=== PATIENT | male | born 2005 | race Caucasian/White ===

== ENCOUNTER 2023-06-24 14:25 | Emergency (ER) | payer OTHER ==
[~2023-06-24] VITALS: Ht 190.5 cm; Wt 145.1 kg
[2023-06-24] MEDS ORDERED: NS IV 1000 ML 1,000 ML IV STA ×2 (14:48→15:28)
--- NOTE | 2023-06-24 14:54 | ED Abdominal Pain ---
General Chief Complaint: Abdominal/GI Problems Stated Complaint: ABD PAIN | DIARRHEA Source of Information: Patient Exam Limitations: No Limitations (ROME KELSEY) History of Present Illness Date Seen by Provider: Jun 24, 2023 Time Seen by Provider: 14:51 Initial Comments Patient is a 18-year-old male who presents ED from [facility] for evaluation for abdominal pain and bloody stools. Patient states he started developing diarrhea yesterday. Several bowel movements that was watery. Patient started having bright red blood in his stool today with an episode of dark stool just right before arrival. Generalized abdominal cramping right before the diarrhea. Reports 2 episodes of vomiting. Was seen at the clinic today receive Zofran and was recommended come the ED secondary to bloody stool and tachycardia. No history of previous abdominal surgery. Denies any recent travels or antibiotic use. Denies eating anything differently. Patient states he has been urinating. Denies cough, sore throat, chest pain, ear pain. Does report a headache. Patient reports subjective fever. (ROME KELSEY) Allergies and Home Medications Allergies Coded Allergies: No Known Drug Allergies (Unverified , 06/24/23) Patient Home Medication List Home Medication List Reviewed: Yes (ROME KELSEY) Ciprofloxacin HCl (Cipro) 500 Mg Tablet, 500 MG PO BID Prescribed by: SUSANA FLORES on 06/24/231802 Metronidazole (Metronidazole) 500 Mg Tablet, 500 MG PO TID Prescribed by: SUSANA FLORES on 06/24/231802 Ondansetron (Ondansetron Odt) 4 Mg Tab.rapdis, 4 MG SL Q4H PRN for NAUSEA/VOMITING Prescribed by: SUSANA FLORES on 06/24/231802 Review of Systems Review of Systems Constitutional: chills; No diaphoresis; fever, malaise, weakness EENTM: No Double Vision, No Eye Pain Respiratory: Denies Cough, Denies SOA at Rest Cardiovascular: Denies Chest Pain Gastrointestinal: Abdominal Pain, Blood Streaked Stools, Diarrhea, Nausea, Vomiting Genitourinary: Denies Burning, Denies Discharge Musculoskeletal: No back pain, No joint pain Skin: No change in color, No change in hair/nails (ROME KELSEY) All Other Systems Reviewed Negative Unless Noted: Yes (ROME KELSEY) Physical Exam Vital Signs Vital Signs - First Documented 06/24/23 14:37 Temp 39.1 Pulse 117 Resp 15 B/P (MAP) 167/98 (121) Pulse Ox 97 O2 Delivery Room Air (COLIN ELDRIDGE MD) Vital Signs Capillary Refill : (ROME KELSEY) Height/Weight/BMI Height: '" Weight: lbs. oz. 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5 5-9 Urine Specific [place] >=1.030 1.016-1.022 Urine Protein 3+ H NEGATIVE Urine Glucose (UA) NEGATIVE NEGATIVE Urine Ketones NEGATIVE NEGATIVE Urine Nitrite NEGATIVE NEGATIVE Urine Bilirubin 1+ H NEGATIVE Urine Urobilinogen 0.2 < = 1.0 MG/DL Urine Leukocyte Esterase NEGATIVE NEGATIVE Urine RBC (Auto) TRACE H NEGATIVE Urine RBC 0-2 /HPF Urine WBC 0-2 /HPF Urine Squamous Epithelial Cells 0-2 /HPF Urine Crystals PRESENT H /LPF Urine Amorphous Sediment FEW BRAD URATES H /LPF Urine Bacteria FEW H /HPF Urine Casts NONE /LPF Urine Mucus MODERATE H /LPF Urine Culture Indicated NO White Blood Count 14.9 H 4.3-11.0 10^3/uL Red Blood Count 5.49 4.30-5.52 10^6/uL Hemoglobin 15.8 13.3-17.7 g/dL Hematocrit 47 40-54 % Mean Corpuscular Volume 86 80-99 fL Mean Corpuscular Hemoglobin 29 25-34 pg Mean Corpuscular Hemoglobin Concent 33 32-36 g/dL Red Cell Distribution Width 12.9 10.0-14.5 % Platelet Count 172 130-400 10^3/uL Mean Platelet Volume 10.8 9.0-12.2 fL Immature Granulocyte % (Auto) 0 % Neutrophils (%) (Auto) 85 H 42-75 % Lymphocytes (%) (Auto) 4 L 12-44 % Monocytes (%) (Auto) 9 0-12 % Eosinophils (%) (Auto) 1 0-10 % Basophils (%) (Auto) 0 0-10 % Neutrophils # (Auto) 12.7 H 1.8-7.8 10^3/uL Lymphocytes # (Auto) 0.6 L 1.0-4.0 10^3/uL Monocytes # (Auto) 1.4 H 0.0-1.0 10^3/uL Eosinophils # (Auto) 0.1 0.0-0.3 10^3/uL Basophils # (Auto) 0.1 0.0-0.1 10^3/uL Immature Granulocyte # (Auto) 0.1 0.0-0.1 10^3/uL Neutrophils % (Manual) 54 % Lymphocytes % (Manual) 5 % Monocytes % (Manual) 12 % Basophils % (Manual) 1 % Metamyelocytes % 1 % Band Neutrophils 27 % Platelet Estimate ADEQUATE Blood Morphology Comment NORMAL Prothrombin Time 14.2 12.2-14.7 SEC INR Comment 1.1 0.8-1.4 Activated Partial Thromboplast Time 33 24-35 SEC Sodium Level 134 L 135-145 MMOL/L Potassium Level 3.7 3.6-5.0 MMOL/L Chloride Level 100 98-107 MMOL/L Carbon Dioxide Level 21 21-32 MMOL/L Anion Gap 13 5-14 MMOL/L Blood Urea Nitrogen 15 7-18 MG/DL Creatinine 1.22 0.60-1.30 MG/DL Estimat Glomerular Filtration Rate 87 BUN/Creatinine Ratio 12 Glucose Level 124 H 70-105 MG/DL Calcium Level 9.6 8.5-10.1 MG/DL Corrected Calcium 9.2 8.5-10.1 MG/DL Total Bilirubin 0.8 0.1-1.0 MG/DL Aspartate Amino Transf (AST/SGOT) 35 H 5-34 U/L Alanine Aminotransferase (ALT/SGPT) 52 0-55 U/L Alkaline Phosphatase 82 40-136 U/L Total Protein 8.0 6.4-8.2 GM/DL Albumin 4.5 3.2-4.5 GM/DL Lipase 21 8-78 U/L Lactic Acid Level 2.13 *H 0.50-2.00 MMOL/L Influenza Type A (RT-PCR) Not Detected Not Detecte Influenza Type B (RT-PCR) Not Detected Not Detecte SARS-CoV-2 RNA (RT-PCR) Not Detected Not Detecte Test 06/24/23 17:27 Range/Units Lactic Acid Level 1.36 0.50-2.00 MMOL/L (COLIN ELDRIDGE MD) Vital Signs/I&O 06/24/23 06/24/23 14:37 17:40 Temp 39.1 38.1 Pulse 117 107 Resp 15 12 B/P (MAP) 167/98 (121) 145/66 Pulse Ox 97 97 O2 Delivery Room Air Room Air (COLIN ELDRIDGE MD) Fecal Occult: Positive (ROME KELSEY) Departure Communication (PCP) On arrival febrile tachycardic. Septic work-up was initiated. Patient has had generalized abdominal pain few episodes of vomiting and diarrhea since yesterday with bloody mucousy stools today. No family history of known inflammatory bowel disease. History of tricuspid regurgitation. Patient was tachycardic. Patient received a dose of Toradol. Started on liter of fluid. Patient did not have any specific abdominal tenderness on arrival. CBC showed an elevated white blood count of 14. Normal hemoglobin. Chemistry was grossly unremarkable. COVID influenza negative lactic acid 2.13. Improvement to 1.36 after second liter of fluid. Heart rate remained just above 110-120. Patient states he does normally have a higher heart rate. Not able to compare. Patient is a student at [employer]. CT abdomen and pelvis shows right hemicolon inflammation suggesting colitis which may be infectious versus inflammatory. No evidence of obstruction or abscess. he has had no recent travels or antibiotic use that would increase the chance for infectious etilogy. He did initially receive a dose of Rocephin broad-spectrum antibiotic. consulted with Dr. Dunn. Discussed admission for observation IV fluids and IV antibiotics. He agreed and recommended clear liquids, pain medication, nausea medication and Cipro and Flagyl. Did consult with Dr. Coyne who agreed to accept patient. Family came down from [place]. Discussed results with family. Family talked to patient and at this time they are wanting to go home with oral antibiotics and they will follow-up outpatient with general surgery. He states he is feeling much better at this time. Will discharge with Cipro and Flagyl. Zofran for nausea. Clear liquids for the next 2 or 3 days. Need to follow-up with general surgery for reevaluation. If symptoms continue to worsen he needs return back to ED and they agreed. May require a outpatient colonoscopy for further evaluation. (ROME KELSEY) Impression Primary Impression: Colitis Disposition: 01 HOME, SELF-CARE Condition: Stable Departure-Patient Inst. Decision time for Depature: 17:30 (ROME KELSEY) Referrals: [facility] MD NO,LOCAL PHYSICIAN (PCP) Primary Care Physician Patient Instructions: Colitis (DC) Add. Discharge Instructions: Take Cipro and Flagyl as prescribed. Clear liquid diet for the next 2 or 3 days. Zofran for nausea. If any worsening symptoms return back to ED. Follow- up with general surgery within the next 1 to 2 weeks for reevaluation All discharge instructions reviewed with patient and/or family. Voiced understanding. Scripts Ondansetron (Ondansetron Odt) 4 Mg Tab.rapdis 4 MG SL Q4H PRN for NAUSEA/VOMITING, #8 TAB Prov: ROME KELSEY 06/24/23 Metronidazole (Metronidazole) 500 Mg Tablet 500 MG PO TID for 7 Days, #21 TAB Prov: ROME KELSEY 06/24/23 Ciprofloxacin HCl (Cipro) 500 Mg Tablet 500 MG PO BID for 7 Days, #14 TAB Prov: ROME KELSEY 06/24/23 ATTENDING PHYSICIAN NOTE: I was physically present as attending physician in the emergency department during the care of this patient, but I was not directly involved in the decision making or delivery of care for this patient. (COLIN ELDRIDGE MD) ROME KELSEY Jun 24, 2023 14:54 COLIN ELDRIDGE MD Jun 25, 2023 13:04
[2023-06-24 14:55] LABS: BASOPHILS # (AUTO) 0.1 10^3/uL (0.0-0.1); BASOPHILS % (AUTO) 0 % (0-10); EOSINOPHILS # (AUTO) 0.1 10^3/uL (0.0-0.3); EOSINOPHILS % (AUTO) 1 % (0-10); HEMATOCRIT 47 % (40-54); HEMOGLOBIN 15.8 g/dL (13.3-17.7); LYMPHOCYTES # (AUTO) 0.6 10^3/uL (1.0-4.0); LYMPHOCYTES % (AUTO) 4 % (12-44); MEAN CORPUSCULAR HEMOGLOBIN 29 pg (25-34); MEAN CORPUSCULAR HGB CONC 33 g/dL (32-36); MEAN CORPUSCULAR VOLUME 86 fL (80-99); MEAN PLATELET VOLUME 10.8 fL (9.0-12.2); MONOCYTES # (AUTO) 1.4 10^3/uL (0.0-1.0); MONOCYTES % (AUTO) 9 % (0-12); NEUTROPHILS # (AUTO) 12.7 10^3/uL (1.8-7.8); NEUTROPHILS % (AUTO) 85 % (42-75); PLATELET COUNT 172 10^3/uL (130-400); WHITE BLOOD COUNT 14.9 10^3/uL (4.3-11.0)
[2023-06-24 14:58] LABS: AMORPHOUS SEDIMENT,UR FEW AMOR URATES /LPF; BACTERIA,URINE FEW /HPF; BILIRUBIN,URINE 1+ (NEGATIVE); CLARITY,URINE CLEAR; COLOR,URINE ORANGE; GLUCOSE, URINE (UA) NEGATIVE (NEGATIVE); KETONES,URINE NEGATIVE (NEGATIVE); LEUKOCYTE ESTERASE ,URINE NEGATIVE (NEGATIVE); NITRITE,URINE NEGATIVE (NEGATIVE); PH,URINE 5.5 (5-9); PROTEIN,URINE 3+ (NEGATIVE); RBC,URINE 0-2 /HPF; SQUAMOUS EPITHELIAL CELL,UR 0-2 /HPF; WBC,URINE 0-2 /HPF
[2023-06-24] MEDS ORDERED: IOHEXOL 350 MG/ML 100 ML (OMNIPAQUE 350) VIAL IV ONE (15:00)
[2023-06-24] MEDS ORDERED: HOLD METFORMIN - RECEIVED CONTRAST 20 ML VIAL IV SCH (15:00)
[2023-06-24] MEDS ORDERED: NS 100 ML (IVPB) BAG IV ONE (15:00)
[2023-06-24 15:08] LABS: INR 1.1 (0.8-1.4); PROTHROMBIN TIME PATIENT 14.2 SEC (12.2-14.7)
[2023-06-24 15:12] LABS: ALBUMIN 4.5 GM/DL (3.2-4.5); POTASSIUM 3.7 MMOL/L (3.6-5.0)
[2023-06-24 15:14] LABS: CALCIUM 9.6 MG/DL (8.5-10.1)
[2023-06-24 15:17] LABS: BILIRUBIN,TOTAL 0.8 MG/DL (0.1-1.0)
[2023-06-24 15:19] LABS: CREATININE SERUM 1.22 MG/DL (0.60-1.30)
[2023-06-24 15:38] LABS: BAND NEUTROPHILS 27 %; BASOPHILS % (MANUAL) 1 %; LYMPHOCYTES % (MANUAL) 5 %; METAMYELOCYTES % 1 %; MONOCYTES % (MANUAL) 12 %; NEUTROPHILS % (MANUAL) 54 %; PLATELET ESTIMATE ADEQUATE; RBC MORPH NORMAL
[2023-06-24] MEDS ORDERED: KETOROLAC INJ 30 MG/ML VIAL IVP ONE (16:00)
--- NOTE | 2023-06-24 16:01 | Diagnostic Imaging Report ---
EXAMINATION: CT abdomen and pelvis with intravenous contrast. TECHNIQUE: Multiple contiguous axial images were obtained through the abdomen and pelvis after the uneventful administration of intravenous contrast. All CT scans use one or more of the following dose optimizing techniques: automated exposure control, MA and/or KvP adjustment based on patient size and exam type or iterative reconstruction. HISTORY: generalized abd pain COMPARISON: None available. FINDINGS: Lung bases: The lung bases are clear. Solid organs: The liver is normal without focal lesion. The gallbladder is normal. There is no biliary ductal dilation. Pancreas is normal. Spleen is normal. Adrenal glands are normal. The kidneys are normal without hydronephrosis. Bowel: The stomach and small bowel are normal without obstruction. There is wall thickening of the right hemicolon with mild surrounding inflammatory stranding. There are no secondary signs of acute appendicitis. Peritoneum: There is no intraperitoneal free fluid or free air. There are few prominent lymph nodes along the right abdominal mesentery which may be reactive. Vasculature: Normal without aneurysm. Musculoskeletal: No suspicious osseous lesion or compression fracture. Pelvis: The prostate gland is normal. The urinary bladder is normal. IMPRESSION: 1. Wall thickening and inflammation of the right hemicolon which may be secondary to an infectious or inflammatory colitis. Dictated by: Dictated on workstation # [id number]
[2023-06-24] MEDS ORDERED: cefTRIAXone IV/IM 1,000 MG in NS (IVPB) 50 ML 50 ML IV ONE (16:15)
[2023-06-24] MEDS ORDERED: metroNIDAZOLE 500MG/100ML IVPB 100 ML IV ONE (17:15)
[2023-06-24] MEDS: CIPROFLOXACIN IV 400MG/200ML 200 ML IV ONE ×2 (17:26→17:30)
[2023-06-24] MEDS ORDERED: METR-145 PO ×2 (17:31→18:03)
[2023-06-24] MEDS ORDERED: CIPR-225 PO ×2 (17:31→18:03)
[2023-06-24] MEDS ORDERED: ONDA4TAB11 SL ×2 (17:31→18:03)
[2023-06-24 17:40] VITALS: BP 145/66
== END 2023-06-24 17:40 | disposition home or self-care (01) ==
LOC: ER 14:29
DX: K52.9 Noninfective gastroenteritis and colitis, unspecified (principal); R00.0 Tachycardia, unspecified; Z20.822 Contact with and (suspected) exposure to COVID-19
CPT/HCPCS: 36415; 74177; 80053; 81000; 82274; 83605; 83690; 85007; 85027; 85610; 85730; 87040; 87636